=== PATIENT | female | born 1990 | race Caucasian/White ===

== ENCOUNTER → 2017-05-07 17:00 | Outpatient (CLI) | payer OTHER, SELFPAY ==
[2017-05-07 18:26] LABS: Group B Strep DNA By PCR Negative (Negative); Internal Control PASS; Probe Check PASS; Specimen Processing Control PASS
== END ==
PROVIDERS: Visit Provider Obstetrics & Gynecology
DX: Z34.02 Encounter for supervision of normal first pregnancy, second trimester (principal)
CPT/HCPCS: 87081; 87653

== ENCOUNTER → 2017-05-21 18:06 | Outpatient (CLI) | payer OTHER, SELFPAY | PROVIDERS: Visit Provider Obstetrics & Gynecology | DX: Z34.90 Encounter for supervision of normal pregnancy, unspecified, unspecified trimester (principal) | CPT/HCPCS: 87086; 87088 ==

== ENCOUNTER 2017-05-27 13:55 | Outpatient (CLI) | payer OTHER, MEDICAID, SELFPAY ==
[2017-05-27 14:11] VITALS: BMI 30.9
--- NOTE | 2017-05-28 09:57 | OB.TRI.NOTE ---
History of Present Illness Date of Service: 05/27/17 Reason For Visit: R/O LABOR Date of Service: 05/27/17 Final PRISCILLA: 06/01/17 Gestational age: 39 Weeks and 3 Days History of Present Illness: 27 yo presents with contractions no VB LOF Allergies No Known Allergies Allergy (Unverified 05/28/17 06:41) NST - FHR Rate Baby A Baseline: 140 Variability:: Moderate Accelerations:: 15 x 15 Decelerations:: None NST Reactive:: Yes FHR Category:: Category I Uterine Activity:: every 2-5 Impression/Plan no cervical change, false labor. dc home labor precautions
== END 2017-05-27 15:15 | disposition home or self-care (01) ==
LOC: WPOUT 13:58 → WP 13:59
PROVIDERS: Visit Provider Obstetrics & Gynecology
DX: O47.1 False labor at or after 37 completed weeks of gestation (principal); Z3A.39 39 weeks gestation of pregnancy
CPT/HCPCS: 59025; 59050; 99218; G0378

== ENCOUNTER 2017-05-28 04:58 | Inpatient (IN) | payer OTHER, MEDICAID, SELFPAY ==
[2017-05-28] MEDS: Lactated Ringers 1,000 ML 50 ML IV (05:00)
[2017-05-28 05:24] LABS: Hematocrit 41.8 % (37-47); Hemoglobin 14.1 g/dl (12.0-15.0); Mean Corp Hgb Conc 33.7 g/gl (32-36); Mean Corpuscular Hgb 29.7 pg (27.0-32.0); Mean Corpuscular Volume 88.2 fL (81-99); Mean Platelet Vol. 9.7 fl (6.2-12.0); Platelet Count 268 K/mm3 (150-450); RBC Distribution Width SD 44.7 fl (35.1-43.9); Red Blood Count 4.74 M/mm3 (4.2-5.4); White Blood Count 19.2 K/mm3 (4.4-11.0)
[2017-05-28 05:34] LABS: Scan Indicated on CBC? Y/N NO
[2017-05-28] MEDS: Oxytocin 30 units/NS 500 ml 30 UNITS/500 ML IV.SOLN 334 UNITS IV (05:40)
[2017-05-28] MEDS: Methylergonovine 0.2 MG/ML Ampul IM (05:41)
[2017-05-28] MEDS: Oxytocin 30 units/NS 500 ml 30 UNITS/500 ML IV.SOLN 167 UNITS IV (06:10)
[2017-05-28 06:40] VITALS: BMI 30.8
[2017-05-28] MEDS: 0.9% Saline Lock 10 ML Syringe IV (08:38)
[2017-05-28] MEDS: Naproxen 250 MG Tablet PO (08:54)
[2017-05-28 09:03] VITALS: BP 123/76; PULSE 84; RESP 16; TEMP 37.3; O2SAT 94
[2017-05-28 09:57] VITALS: BP 123/76; PULSE 84; RESP 16; TEMP 37.3; O2SAT 94
[2017-05-28 14:00] VITALS: BP 103/59; PULSE 100; RESP 16; TEMP 36.7; O2SAT 96
[2017-05-28] MEDS: Acetaminophen 500 MG Tablet 1000 MG PO (16:09)
[2017-05-28 18:00] VITALS: BP 105/58; PULSE 101; RESP 16; TEMP 36.9; O2SAT 98
[2017-05-28 20:40] VITALS: BP 112/64; PULSE 97; RESP 18; TEMP 36.7; O2SAT 96
[2017-05-28 23:35] VITALS: BP 108/65; PULSE 89; RESP 18; TEMP 36.6; O2SAT 94
[2017-05-29] MEDS: Naproxen 250 MG Tablet PO ×3 (01:33→21:26)
[2017-05-29 03:55] VITALS: BP 112/67; PULSE 86; RESP 18; TEMP 36.7; O2SAT 96
[2017-05-29 09:00] VITALS: BP 110/64; PULSE 93; RESP 16; TEMP 36.5; O2SAT 97
--- NOTE | 2017-05-29 09:32 | PCM.HP.OB ---
- Problem List (1) Active labor at term Status: Acute (2) Supervision of normal Status: Acute Qualifiers: Comment: PRR (needs urine culture) PRISCILLA 06/01/17 girl Addisyn boyfriend Sin D[place] History Date of Admission: 05/28/17 Final PRISCILLA: 06/01/17 Gestational age: 39 Weeks and 4 Days History of this : 27 yo @ 39w4d presents IAL 8 cm dilated and delivered precipitiously within 40 minutes. she had been having contractions t ome on and off for about 24 hours. Pertinent Past Medical History: [facility] Family History Grandmother Diabetes Heart disease Grandfather , colon cancer Colon cancer Social History Smoking Status: Former smoker alcohol intake: never substance use type: does not use what type of physical activity do you participate in: none seatbelt use: always do you feel safe at home: Yes additional social history: single Pregancy History 1 Elective abortions Hx Para Spontaneous abortions Hx # Term Pregnancies Ectopic pregnancies Hx # Pregnancies Multiple births # of living children HPI (OB): Details: SHAYNA TOUSSAINT is a 27 year old who presents for routine OB visit. OB Visit PRISCILLA Calculator Estimated Delivery Date 06/01/17 Based on LMP (certain) 08/25/16 Current WG 38w 3d Number 1 Expected Delivery Route/Plan vaginal Specific Issue/Plans Initial OB labs H03/04/17 12.1 Platelets: Type and Screen: O positive RPR: neg Rubella: immune HepBsAg: neg HIV: neg GC/Chlamydia: neg/neg Urine Culture: HepC: GCT: 128 Rhogam given: Cystic fibrosis carrier screenin-16 week testing Sequential Screen: NIPT screenin-20 week Anatomy Ultrasound: 26-28 week labs Hg: Platelets: GCT: tDAP given: Type and Screen: Rhogam given: 3hrGCT: 36 week labs GBS: Allergies No Known Allergies Allergy (Unverified 05/28/17 06:41) Current Medications Acetaminophen (Tylenol) 1,000 mg PO Q8H PRN PRN PRN Reason: MILD PAIN (1-3/10)/Temp>99.6F Last Admin: 05/28/17 16:09 Dose: 1,000 mg Bisacodyl (Dulcolax) 10 mg RECTAL UD PRN PRN Reason: If no BM Dibucaine (Dibucaine) 1 applic TOPICAL TID PRN PRN; Protocol PRN Reason: Discomfort Hydrocortisone (Hytone) 1 applic TOPICAL TID PRN PRN; Protocol PRN Reason: Discomfort Lactated Ringer's () 1,000 mls @ 0 mls/hr IV .Q0M MOSES PRN Reason: KVO Methylergonovine Maleate (Methergine) 0.2 mg IM X1 PRN PRN Reason: Excess bleeding/uterine atony Last Admin: 05/28/17 05:41 Dose: 0.2 mg Naproxen (Naprosyn) 250 - 500 mg PO Q8H PRN PRN PRN Reason: MILD PAIN (1-3/10) Last Admin: 05/29/17 01:33 Dose: 500 mg Ondansetron HCl (Zofran) 4 mg IV Q4H PRN PRN PRN Reason: Nausea Oxycodone HCl (Oxyir) 5 - 10 mg PO Q4H PRN PRN PRN Reason: MOD-SEVERE PAIN (4-10/10) Senna/Docusate Sodium (Senokot-S, Michelle-Colace) 1 - 2 tablet PO DAILY PRN PRN PRN Reason: Constipation Simethicone (Mylicon) 80 mg PO PCHS PRN PRN Reason: Indigestion/Stomach pain Sodium Chloride () 5 - 15 ml IV UD PRN PRN Reason: SALINE FLUSH Last Admin: 05/28/17 08:38 Dose: 10 ml Smoking Status: Never smoker Alcohol: None Drug Use: none Number of Fetus(es): 1 - 150s moderate variability toco q 2-3 Review of Systems Constitutional: Denies: Chills, Fever, Weight Change HEENT: Denies: Head Aches, Sinus Congestion, Sinus Drainage Cardiovascular: Denies: Chest Pain, Palpitations Respiratory: Denies: Cough, Shortness of breath at rest, Sputum production Gastrointestinal: Reports: Abdominal Pain. Denies: Nausea, Vomiting Genitourinary: Denies: Dysuria Gynecological: Reports: Vaginal bleeding, Vaginal discharge Musculoskeletal: Denies: Joint Pain, Joint Tenderness Skin: Denies: Rash, Wounds Neurological: Denies: Numbness, Tingling, Focal weakness Psychiatric: Denies: Anxiety, Depression, Homicidal Ideations, Suicidal Ideations Hematologic/ Lymphatic: Denies: Easy Bruising, Easy Bleeding Physical Exam Vitals: Vital Signs Temp Pulse Resp BP Pulse Ox 97.7 F L 93 16 110/64 97 05/29/17 09:00 05/29/17 09:00 05/29/17 09:00 05/29/17 09:00 05/29/17 09:00 General: Alert, Oriented x3, No apparent distress Cardiovascular: Regular rate Lungs: Normal air movement Abdomen: Soft, Gravid Estimated gestational size: Appropriate for gestational size Cervix Dilation (cm): 8 Assessment/Plan Active and Suspected Problems (Last Reviewed 05/21/17 @ 12:48 by Gisele Navarro) Active labor at term (Acute) 27 yo @ 39w3d presents IAL preciptious delivery no epidural routine care some mild atony managed with methergine
--- NOTE | 2017-05-29 09:36 | PCM.OB.VAG ---
- Problem List (1) Active labor at term Status: Acute (2) Supervision of normal Status: Acute Qualifiers: Comment: PRR (needs urine culture) PRISCILLA 06/01/17 girl Addisyn boyfriend Sin D[place] Vaginal Delivery Maternal Presentation: Active Labor 27 yo @ 39w3d presents IAL precipitous delivery Amniotic Membrane Rupture Type: Spontaneous at home Amniotic Fluid Description: Clear Final PRISCILLA: 06/01/17 Gestational age: 39 Weeks and 4 Days Date of Procedure: 05/28/17 Pre-Operative Diagnosis: ial Post-Operative Diagnosis: same Surgery/ Procedure Performed: Spontaneous Vaginal Delivery Type of Anesthesia: Local with 1% lidocaine Description of Procedure: spontaneous vaginal deliver uncomplicated 1st degree perineal laceration repaired in the usual fashion after numbed with epinephrine. ebl 400cc. Presentation: SINGH Placental Delivery Description: Spontaneous Placenta Disposition: [facility] Cord Entanglement: None Estimated Blood Loss: 400 A gender: Female Episiotomy Description: None Laceration: Perineal Extension/lac, 1st degree Medications given after delivery: IV Pitocin, IM Methergin Complications: None
[2017-05-29] MEDS: Senna/Docusate Sodium 1 Tablet PO ×2 (10:16→21:27)
[2017-05-29 13:58] VITALS: BP 116/64; PULSE 97; RESP 18; TEMP 36.5; O2SAT 98
[2017-05-29 21:30] VITALS: BP 117/77; PULSE 95; RESP 16; TEMP 35.9; O2SAT 95
[2017-05-30 01:00] VITALS: BP 112/72; PULSE 100; RESP 18; TEMP 36.5
[2017-05-30] MEDS: Naproxen 250 MG Tablet PO (05:48)
--- NOTE | 2017-05-30 07:02 | PCM.PN.OB ---
Patient Problems: Active and Suspected Problems (Last Reviewed 05/21/17 @ 12:48 by Gisele Navarro) Active labor at term (Acute) Subjective: doing well no complaints - Physical Exam General: Alert, Oriented x3 Vital Signs Temp Pulse Resp BP Pulse Ox 97.7 F L 100 18 112/72 95 05/30/17 01:00 05/30/17 01:00 05/30/17 01:00 05/30/17 01:00 05/29/17 21:30 Oxygen Delivery Method Room Air Weight: 209 lb Body Mass Index (BMI) 30.8 Medical Necessity - Tobacco Use Smoking Status: Never smoker Assessment/Plan Active and Suspected Problems (Last Reviewed 05/21/17 @ 12:48 by Gisele Navarro) Active labor at term (Acute) s/p routine care hi home
--- NOTE | 2017-05-30 07:02 | PCM.DCVAG ---
Discharge Diet: No Restrictions Discharge Activity: Return to Normal Activity, May not drive while taking narcotic pain medications., May Shower May resume sexual activity in: 4-6 weeks Call your doctor if your incision/area has: Continuous Slow Oozing, Sudden Increased Bleeding, Increased Pain/ Swelling, Increased Redness, Foul Smelling Discharge Additional Instructions: If you experience any of the following, contact your healthcare provider. Bleeding that soaks a pad every hour for 2 hours Fever 100.4 or higher Unrelieved incision or abdominal pain Swelling, redness, discharge or bleeding from your incision or episiotomy site Your incision begins to separate Problems urinating (including inability to urinate or burning while urinating). Visual changes Severe headache Flu-like symptoms Pain or redness in one of both of your breasts Pain, warmth, tenderness or swelling in your legs, especially the calf area Frequent nausea and vomiting Symptoms of depression or anxiety If you experience any of the following, call 911 or go to the nearest Emergency Room. Chest pain Problems breathing Seizure activity Partial or complete paralysis of a body part, slurred speech, weakness or drooping of the face, or a sudden inability to walk or hold your balance Allergies/Adverse Reactions: Allergies No Known Allergies Allergy (Unverified 05/28/17 06:41) Please Follow Up With: Gudelia Loyd MD - [phone] When: Call to make an appointment with your doctor in 6 weeks. If you had elevated Blood pressure or 4th degree laceration you will need to be seen in 2 weeks. Primary Care Physician: Care Physician,No Primary [Primary Care Provider] -
--- NOTE | 2017-05-30 07:03 | DCINST_ITS ---
Discharge Diet: No Restrictions Discharge Activity: Return to Normal Activity, May not drive while taking narcotic pain medications., May Shower May resume sexual activity in: 4-6 weeks Call your doctor if your incision/area has: Continuous Slow Oozing, Sudden Increased Bleeding, Increased Pain/ Swelling, Increased Redness, Foul Smelling Discharge Additional Instructions: If you experience any of the following, contact your healthcare provider. * Bleeding that soaks a pad every hour for 2 hours * Fever 100.4 or higher * Unrelieved incision or abdominal pain * Swelling, redness, discharge or bleeding from your incision or episiotomy site * Your incision begins to separate * Problems urinating (including inability to urinate or burning while urinating) . * Visual changes * Severe headache * Flu-like symptoms * Pain or redness in one of both of your breasts * Pain, warmth, tenderness or swelling in your legs, especially the calf area * Frequent nausea and vomiting * Symptoms of depression or anxiety If you experience any of the following, call 911 or go to the nearest Emergency Room. * Chest pain * Problems breathing * Seizure activity * Partial or complete paralysis of a body part, slurred speech, weakness or drooping of the face, or a sudden inability to walk or hold your balance Allergies/Adverse Reactions: Allergies No Known Allergies Allergy (Unverified 05/28/17 06:41) Please Follow Up With: Gudelia Loyd MD - [phone] When: Call to make an appointment with your doctor in 6 weeks. If you had elevated Blood pressure or 4th degree laceration you will need to be seen in 2 weeks. Primary Care Physician: Care Physician,No Primary [Primary Care Provider] -
[2017-05-30 08:00] VITALS: BP 115/73; PULSE 97; RESP 16; TEMP 36.8
--- NOTE | 2017-05-30 09:57 | NURSING ---
0840 Patient states she wants to go home and feels comfortable and able to care for herself and her baby. Discharged to home via wheelchair to car with infant in her lap in carseat.
== END 2017-05-30 08:40 | disposition home or self-care (01) | DRG 775 ==
PROVIDERS: Admitting Provider Obstetrics & Gynecology; Visit Provider Obstetrics & Gynecology
DX: O70.0 First degree perineal laceration during delivery (principal); O62.2 Other uterine inertia; Z3A.39 39 weeks gestation of pregnancy; Z37.0 Single live birth
CPT/HCPCS: 59025; 59050; 85027; 86850; 86900; 99218; J7120; A4216; G0378

== ENCOUNTER → 2018-07-27 17:45 | Outpatient (CLI) | payer OTHER, SELFPAY ==
[2018-07-27 15:39] VITALS: BMI 30.7
[2018-07-30 13:14] LABS: HPV Reflexed? NOT INDICATED
== END ==
PROVIDERS: Referring Provider Obstetrics & Gynecology; Visit Provider Obstetrics & Gynecology
DX: Z12.4 Encounter for screening for malignant neoplasm of cervix (principal)
CPT/HCPCS: 87624; 88175; G0145

== ENCOUNTER → 2019-03-17 17:06 | Outpatient (CLI) | payer OTHER, SELFPAY ==
[2019-03-17 14:05] VITALS: BMI 30.7
[2019-03-17 22:04] LABS: Chlamydia Trachomatis by PCR Negative (Negative); Neisserai gonorrhoeae by PCR Negative (Negative); Probe Check PASS; Sample Adequacy Control PASS; Specimen Processing Control PASS
== END ==
PROVIDERS: Referring Provider Obstetrics & Gynecology; Visit Provider Obstetrics & Gynecology
DX: Z34.90 Encounter for supervision of normal pregnancy, unspecified, unspecified trimester (principal)
CPT/HCPCS: 87491; 87591

== ENCOUNTER → 2019-04-14 | Outpatient (CLI) | payer OTHER, SELFPAY ==
[2019-04-14 08:25] VITALS: BMI 30.7
[2019-04-14 10:01] LABS: Absolute Neutrophil Count 5.5 X10^3/uL (2.0-7.7); Basophil# 0.02 X10^3/uL; Basophil% 0.3 % (0-1); Eosinophil# 0.04 X10^3/uL; Eosinophils% 0.6 % (0-5); Hematocrit 41.2 % (37-47); Hemoglobin 13.6 g/dL (12.0-15.0); Mean Corpuscular Volume 90.7 fL (81-99); Mean Platelet Vol. 9.2 fl (6.2-12.0); Monocyte# 0.37 X10^3/uL; Monocyte% 5.1 % (0-10); NRBC Flagged by Analyzer 0 % (0-5); Neutrophil # 5.47 X10^3/uL (2.7-7.7); Neutrophil % 75.6 % (47-70); Platelet Count 234 K/mm3 (150-450); RBC Distribution Width CV 12.6 % (11.6-14.6); RBC Distribution Width SD 41.5 fl (35.1-43.9); Red Blood Count 4.54 M/mm3 (4.2-5.4); White Blood Count 7.2 K/mm3 (4.4-11.0)
[2019-04-14 12:46] LABS: HIV - WCH Non-Reactive (Nonreactive); Hepatitis B Surface Antigen Non-Reactive (Nonreactive); Rubella IgG 129.7 IU/mL
[2019-04-14 17:07] LABS: Amphetamine Urine VISTA NEGATIVE (<1000 ng/mL); Barbiturate Urine VISTA NEGATIVE (< 200 ng/mL); Benzodiazepine Urine VISTA NEGATIVE (< 200 ng/mL); Cocaine Urine VISTA NEGATIVE (< 300 ng/mL); Ecstacy Urine VISTA NEGATIVE (< 500 ng/mL); Methadone Urine VISTA NEGATIVE (< 300 ng/mL); PCP Urine VISTA NEGATIVE (< 25 ng/mL); THC Urine VISTA NEGATIVE (< 50 ng/mL); Vista UDS pH Range 6
[2019-04-21 03:49] LABS: Rapid Plasmin Reagin (RPR) NONREACTIVE (NONREACTIVE)
== END | disposition home or self-care (01) ==
LOC: LAB 09:01
PROVIDERS: Nurse Practitioner Women's Health; Referring Provider Obstetrics & Gynecology; Visit Provider Obstetrics & Gynecology
DX: Z34.90 Encounter for supervision of normal pregnancy, unspecified, unspecified trimester (principal)
CPT/HCPCS: 36415; 80307; 85025; 86592; 86703; 86762; 86850; 86900; 86901; 87340

== ENCOUNTER → 2019-06-03 | Outpatient (CLI) | payer OTHER, SELFPAY ==
[2019-04-14 08:25] VITALS: BMI 30.7
[2019-05-13 09:05] VITALS: BMI 30.7
--- NOTE | 2019-06-03 12:20 | US_ITS ---
STUDY: SECOND AND THIRD TRIMESTER OBSTETRICAL ULTRASOUND REASON FOR EXAM: Female, 29 years old anatomy LMP: January 14, 2019 TECHNIQUE: Transabdominal TECHNICAL QUALITY: Adequate. PRIOR ULTRASOUND: None. FINDINGS: There is a single intrauterine fetus. The fetus is in a transverse lie with the head on the maternal right side. There is demonstrated cardiac activity with a heart rate of 150 bpm. There is a normal amniotic fluid volume. The largest amniotic fluid pocket measures 7 cm x 3.7 cm. The amniotic fluid index (LARA) is within normal limits. The placenta is anterior in location and is not low lying. There is a 2.4 cm x 1.7 cm x 0.8 cm placental doyle. There are Grade 0 placental changes. The cervix measures 4 cm in length. The bilateral adnexal regions are normal. BIOMETRY: BPD: 4.23 cm: 18 weeks, 5 days HC: 16.7 cm: 19 weeks, 2 days AC: 15.1 cm: 20 weeks, 2 days FL: 3.2 Lj: 19 weeks, 6 days CI: 72% FL/BPD: 75% FL/HC: FL/AC: 21% HC/AC: 1.11 age by current US: 19 weeks, 2 days. PRISCILLA by current US: October 26, 2019. Estimated weight: 326 grams, +/- 48 grams, 37 %. Age by LMP: 20 weeks, 0 days. PRISCILLA by LMP: October 21, 2019. ANATOMY: Gender: Male Cranium: Normal lateral ventricles. Normal choroid plexus. Normal cerebellum. Normal cisterna magna. Normal face, nose and lips. Chest: Normal 4-chamber heart. Abdomen/Pelvis: Normal diaphragm. Normal stomach. Normal abdominal wall. Normal cord insertion. Normal 3 vessel cord. Normal kidneys. Normal bladder. Spine: Normal cervical spine. Normal thoracic spine. Normal lumbar spine. Normal sacrum. Extremities: Normal bilateral upper extremities. Normal bilateral lower extremities. US/OB Anatomy Scan IMPRESSION: Single live intrauterine gestation with a mean gestational age of 19 weeks and 2 days. Electronically Signed: Bam Dominguez, at 14:23 EDT , Service support ,
== END | disposition home or self-care (01) ==
LOC: OPUS 12:19
PROVIDERS: Referring Provider Obstetrics & Gynecology; Visit Provider Obstetrics & Gynecology
DX: Z34.81 Encounter for supervision of other normal pregnancy, first trimester (principal)
CPT/HCPCS: 76805

== ENCOUNTER → 2019-08-04 10:03 | Outpatient (CLI) | payer OTHER, SELFPAY ==
[2019-08-04 09:44] VITALS: BMI 30.7
[2019-08-04 11:16] LABS: Absolute Lymphocyte Count 1.44 X10^3/uL (0.83-4.51); Basophil# 0.03 X10^3/uL; Basophil% 0.3 % (0-1); Eosinophil# 0.07 X10^3/uL; Eosinophils% 0.8 % (0-5); Hematocrit 40.8 % (37-47); Hemoglobin 13.3 g/dL (12.0-15.0); Lymphocyte # 1.44 X10^3/ul (4.0); Lymphocyte % 15.6 % (19-41); Mean Corp Hgb Conc 32.6 g/dL (32-36); Mean Corpuscular Hgb 30.2 pg (27.0-32.0); Mean Corpuscular Volume 92.5 fL (81-99); Mean Platelet Vol. 9.1 fl (6.2-12.0); Monocyte# 0.61 X10^3/uL; Monocyte% 6.6 % (0-10); NRBC Flagged by Analyzer 0 % (0-5); Neutrophil # 7.04 X10^3/uL (2.7-7.7); Neutrophil % 76.1 % (47-70); Platelet Count 254 K/mm3 (150-450); RBC Distribution Width CV 13.5 % (11.6-14.6); Red Blood Count 4.41 M/mm3 (4.2-5.4); White Blood Count 9.3 K/mm3 (4.4-11.0)
[2019-08-04 12:41] LABS: Glucose Challenge Gest 1H 50g 154 mg/dL (70-140)
== END ==
PROVIDERS: Referring Provider Nurse Practitioner Women's Health; Visit Provider Nurse Practitioner Women's Health
DX: Z34.90 Encounter for supervision of normal pregnancy, unspecified, unspecified trimester (principal)
CPT/HCPCS: 36415; 82950; 85025

== ENCOUNTER → 2019-08-10 | Outpatient (CLI) | payer OTHER, SELFPAY ==
[2019-08-04 09:44] VITALS: BMI 30.7
[2019-08-10 10:36] LABS: Glucose GTT-Gestation. Fasting 94 mg/dL (<105)
[2019-08-10 11:28] LABS: Glucose GTT-Gestational 1 Hr 124 mg/dL (<190)
[2019-08-10 13:07] LABS: Glucose GTT-Gestational 2 Hr 113 mg/dL (<165)
[2019-08-10 14:00] LABS: Glucose GTT-Gestational 3 Hr 108 L (<145)
== END | disposition home or self-care (01) ==
LOC: LAB 09:50
PROVIDERS: Referring Provider Nurse Practitioner Women's Health; Visit Provider Nurse Practitioner Women's Health
DX: O99.810 Abnormal glucose complicating pregnancy (principal); Z3A.00 Weeks of gestation of pregnancy not specified
CPT/HCPCS: 36415; 82951; 82952

== ENCOUNTER → 2019-09-23 | Outpatient (CLI) | payer OTHER, SELFPAY ==
[2019-09-23 08:42] VITALS: BMI 30.7
== END | disposition home or self-care (01) ==
LOC: LABSPEC 12:49
PROVIDERS: Referring Provider Obstetrics & Gynecology; Visit Provider Obstetrics & Gynecology
DX: Z34.81 Encounter for supervision of other normal pregnancy, first trimester (principal)
CPT/HCPCS: 87081; 87186

== ENCOUNTER → 2019-10-21 09:11 | Outpatient (CLI) | payer OTHER, SELFPAY ==
[2019-10-21 08:03] VITALS: BMI 31.6
--- NOTE | 2019-10-21 09:17 | US_ITS ---
STUDY: SECOND AND THIRD TRIMESTER OBSTETRICAL ULTRASOUND REASON FOR EXAM: Female, 29 years old GROWTH LMP: 01/14/2019. TECHNIQUE: Transabdominal TECHNICAL QUALITY: Adequate. PRIOR ULTRASOUND: Comparison is made with prior examination of 06/03/2019. FINDINGS: There is a single intrauterine fetus. The fetus is in a cephalic presentation. There is demonstrated cardiac activity with a heart rate of 152 bpm. There is a normal amniotic fluid volume. The largest amniotic fluid pocket measures 5.94 cm. The amniotic fluid index (LARA) is 9.01 cm. The placenta is anterior in location and is not low lying. There are Grade 3 placental changes. The cervix was not measured due to the head positioning. Tthe bilateral adnexal regions are normal. BIOMETRY: BPD: 9.17 cm: 37 weeks, 2 days HC: 33.43 cm: 38 weeks, 2 days AC: 34.58 cm: 39 weeks, 4 days FL: 7.76 cm: 39 weeks, 5 days CI: 78% FL/BPD: 85% FL/HC: FL/AC: 22% HC/AC: 0.94 age by current US: 38 weeks, 5 days. PRISCILLA by current US: 10/30/2019. Estimated weight: 3678 grams, +/- 537 grams, 55 %. age by prior US: 39 weeks, 2 days. PRISCILLA by prior US: 10/26/2019. Age by LMP: 40 weeks, 0 days. PRISCILLA by LMP: 10/21/2019. US/OB Limited With Biometrics IMPRESSION: Single live intrauterine gestation with mean gestational age of 39 weeks and 2 days. The measurements obtained today fall within normal expected range. Electronically Signed: Bam Dominguez, at 11:19 EDT , Service support ,
== END ==
PROVIDERS: Referring Provider Obstetrics & Gynecology; Visit Provider Obstetrics & Gynecology
DX: Z34.90 Encounter for supervision of normal pregnancy, unspecified, unspecified trimester (principal); Z3A.39 39 weeks gestation of pregnancy
CPT/HCPCS: 76816

== ENCOUNTER 2019-10-23 18:50 | Inpatient (IN) | payer OTHER, SELFPAY ==
[2019-10-21 08:03] VITALS: BMI 31.6
[2019-10-23] VITALS (10 sets, daily range): BP systolic 121–133; BP diastolic 76–89; PULSE 91–103; TEMP 36.4–36.7; O2SAT 82–98; BMI 32.6
--- NOTE | 2019-10-23 19:04 | HP.PCM_ITS ---
- Problem List (1) Elective induction of labor planned Status: Acute (2) GBS (group B Streptococcus carrier), +RV culture, currently Status: Acute Comment: plan PCN in labor (3) Abnormal glucose tolerance in Status: Acute Comment: normal 3 hr GTT (4) Contraception management Status: Acute Qualifiers: Comment: plans PPTL (5) Status: Acute Qualifiers: Comment: declines carrier and NIPT screening, and ntd screening. nl anatomy. (6) Supervision of normal Status: Acute Qualifiers: Comment: PRR PRISCILLA 10/21/19 boy Elpidio PC Addsusann boyfriend Sin History Date of Admission: 05/28/17 Final PRISCILLA: 10/21/19 Gestational age: 40 Weeks and 2 Days History of this : This is a 29 year-old, at 40w2d weeks gestational age presents for elective IOL postdates. She has a favorable cervix and is wanting to have a PPTL which will be likely be completed tomorrow at noon. Allergies No Known Allergies Allergy (Verified 10/21/19 08:03) Home Medications: Home Medications docosahexaenoic acid 200 mg capsule mg PO 03/17/19 Smoking Status: Never smoker Alcohol: None Number of Fetus(es): 1 NST - FHR Rate Baby A Baseline: 130 Variability:: Moderate Accelerations:: 15 x 15 Decelerations:: None NST Reactive:: Yes, Appropriate for gestational age FHR Category:: Category I History Past Pregnancies: Past Pregnancies previous term Labs: Social History Alleged father Sin Hx Smoking No Smoking Status Never smoker Expected Infant Delivery Method: Spontaneous Vaginal Review of Systems Constitutional: Denies: Fever, Malaise Eyes: Denies: Blurred vision, Vision Change HEENT: Denies: Head Aches, Visual Changes Cardiovascular: Denies: Chest Pain, Palpitations Respiratory: Denies: Cough, Shortness of Breath, Wheezing Gastrointestinal: Denies: Abdominal Pain, Diarrhea, Nausea, Vomiting Genitourinary: Denies: Dysuria, Hematuria Musculoskeletal: Denies: Joint Pain, Muscle pain Skin: Denies: Lesions, Rash Neurological: Denies: Blurred vision, Focal weakness, Headaches Psychiatric: Denies: Anxiety, Depression Endocrine: Denies: Heat/ Cold Intolerance Hematologic/ Lymphatic: Denies: Easy Bruising, Easy Bleeding Physical Exam General: Alert, Cooperative, No apparent distress HEENT: Atraumatic, Normocephalic. Negative for: Thyromegaly, Lymphadenopathy Cardiovascular: Regular rate Lungs: Normal air movement Abdomen: Soft, Non Tender, Gravid Neurological: Deep Tendon Reflexes 2+/4 and Symmetrical, Neuro grossly intact. Negative for: Clonus TANGIBLE PERSONAL PROPERTY APPRAISER: Normal external genitalia. Negative for: Vulvar lesions Estimated gestational size: Appropriate for gestational size Presentation: Cephalic Cervix Dilation (cm): 3 Station: -2 Effacement (%): 60 Assessment/Plan All Active Problems (Last Reviewed 10/21/19 @ 08:03 by Gisele Navarro) Elective induction of labor planned (Acute) GBS (group B Streptococcus carrier), +RV culture, currently (Acute) Abnormal glucose tolerance in (Acute) Contraception management (Acute) (Acute) Supervision of normal (Acute) Active labor at term (Resolved) This is a 29 year-old, at 40w3d weeks gestational age presetns for IOL elective postdates. Patient presents IOL, plan management for with [pitocin/AROM]. Pain management: [plans epidural]. GBS [negative]. Management of any complications: [none] I have reviewed the [facility] and made any clinically relevant updates. plan PPTL tomorrow at noon if able
[2019-10-23] MEDS: Lactated Ringers 1,000 ML 50 ML IV (19:45)
[2019-10-23 20:08] LABS: Absolute Lymphocyte Count 1.93 X10^3/uL (0.83-4.51); Absolute Neutrophil Count 7.2 X10^3/uL (2.0-7.7); Basophil# 0.03 X10^3/uL; Basophil% 0.3 % (0-1); Eosinophil# 0.11 X10^3/uL; Eosinophils% 1.1 % (0-5); Hematocrit 39.2 % (37-47); Lymphocyte # 1.93 X10^3/ul (4.0); Lymphocyte % 18.7 % (19-41); Mean Corp Hgb Conc 33.2 g/dL (32-36); Mean Corpuscular Volume 90.5 fL (81-99); Mean Platelet Vol. 9.6 fl (6.2-12.0); Monocyte# 0.99 X10^3/uL; Monocyte% 9.6 % (0-10); NRBC Flagged by Analyzer 0 % (0-5); Neutrophil # 7.17 X10^3/uL (2.7-7.7); Neutrophil % 69.6 % (47-70); Platelet Count 243 K/mm3 (150-450); RBC Distribution Width CV 13.4 % (11.6-14.6); RBC Distribution Width SD 44.6 fl (35.1-43.9); Red Blood Count 4.33 M/mm3 (4.2-5.4); White Blood Count 10.3 K/mm3 (4.4-11.0)
[2019-10-23] MEDS: Oxytocin 30 units/NS 500 ml 30 UNITS/500 ML IV.SOLN IV (21:55)
[2019-10-24] VITALS (36 sets, daily range): BP systolic 105–134; BP diastolic 57–79; PULSE 78–103; RESP 16; TEMP 36.1–36.8; O2SAT 94–97
[2019-10-24] MEDS: Lactated Ringers 1,000 ML 200 ML IV (03:36)
[2019-10-24] MEDS: Lactated Ringers 500 ML 999 ML IV (04:45)
--- NOTE | 2019-10-24 05:16 | OP.PCM_ITS ---
Problem List (1) Elective induction of labor planned Status: Acute (2) GBS (group B Streptococcus carrier), +RV culture, currently Status: Acute Comment: plan PCN in labor (3) Abnormal glucose tolerance in Status: Acute Comment: normal 3 hr GTT (4) Contraception management Status: Acute Qualifiers: Comment: plans PPTL (5) Status: Acute Qualifiers: Comment: declines carrier and NIPT screening, and ntd screening. nl anatomy. (6) Supervision of normal Status: Acute Qualifiers: Comment: PRR PRISCILLA 10/21/19 boy Elpidio PC Addysn boyfriend Sin Vaginal Delivery Maternal Presentation: Elective Induction iol 40w3d desires PPTL postdates Method of Induction: Pitocin Medical Reason for Induction: Post term Amniotic Membrane Rupture Type: Artificial Amniotic Fluid Description: Clear Final PRISCILLA: 10/21/19 Gestational age: 40 Weeks and 3 Days Date of Procedure: 10/24/19 Pre-Operative Diagnosis: iol elective postdate 40w3d Post-Operative Diagnosis: same Surgery/ Procedure Performed: Spontaneous Vaginal Delivery Type of Anesthesia: None Description of Procedure: Patient began pushing and delivered the head in the SINGH presentation. The head was delivered atraumatically. The anterior and posterior shoulders delivered without complication followed by the rest of the infant and the infant was placed on the maternal abdomen. Delayed cord clamping was employed for approximately 60 seconds. Cord was clamped and cut and gentle traction was applied to the cord and the placenta delivered spontaneously immediately following it was noted to be intact with three-vessel cord. The perineum and vagina were inspected and noted to have no laceration. EBL was 100 cc. Patient and tolerated delivery well. Placenta Disposition: [facility] Cord Vessel Description: 3 Vessels Cord Entanglement: None Estimated Blood Loss: 100 Infant A gender: Male Episiotomy Description: None Laceration: None Medications given after delivery: IV Pitocin Complications: None Multi Select Codes - Urinary/Genital Urinary/Genital CPT Codes: 42364 Vaginal Delivery [facility]
[2019-10-24] MEDS: Oxytocin 30 units/NS 500 ml 30 UNITS/500 ML IV.SOLN 334 UNITS IV (05:38)
[2019-10-24] MEDS: Methylergonovine 0.2 MG/ML Ampul IM (06:22)
--- NOTE | 2019-10-24 08:20 | NURSING ---
Pads weighed from recovery; total EBL from pads 625 ml, urine noted along with blood in first pad that weighed 410 ml. Small clot noted the size of dime in 2nd pad. Pt's rubra amount decreased after voiding 300 ml urine in toilet with this RN's assistance. Vitals remain stable.
[2019-10-24] MEDS: Naproxen 250 MG Tablet 500 MG PO ×2 (08:40→19:49)
[2019-10-24] MEDS: Lactated Ringers 1,000 ML 150 ML IV ×2 (08:44→13:30)
--- NOTE | 2019-10-24 13:38 | PCM.OPRPT ---
Problem List (1) Elective induction of labor planned Status: Acute (2) GBS (group B Streptococcus carrier), +RV culture, currently Status: Acute Comment: plan PCN in labor (3) Abnormal glucose tolerance in Status: Acute Comment: normal 3 hr GTT (4) Contraception management Status: Acute Qualifiers: Comment: plans PPTL (5) Status: Acute Qualifiers: Comment: declines carrier and NIPT screening, and ntd screening. nl anatomy. (6) Supervision of normal Status: Acute Qualifiers: Comment: PRR PRISCILLA 10/21/19 boy Elpidio PC Addysn boyfriend Sin Report of Operation Date of Procedure: 10/24/19 Pre-Operative Diagnosis: sterilization Post-Operative Diagnosis: same Surgery/Procedure Performed:: tad vang Description of Surgical Findings:: nl tubes ovaries Type of Anesthesia:: General Special Medications: none Specimen's removed: none Drains: none Estimated Blood Loss (mL): none Fluids Replaced: crystalloid Description of Procedure: Patient was taken to the operating room and general anesthesia induced. Patient was placed in the dorsal supine position was prepped and draped in normal sterile fashion. Mehta catheter was used to drain the bladder. Infra umbilical incision was made with a scalpel after injecting with marcaine and carried through the underlying layer of the fascia with a scalpel fascial incision was extended bilaterally with Flores scissors and bowel packed away and the right fallopian tube identified confirmed to be fallopian tube by following it out to the fimbria and a Filshie clip was applied in the mid interstitial portion of the fallopian tube noting to completely transect the tube. This was repeated on the left side where the tube was identified and followed out to the fimbria and confirmed to be fallopian tube and then the mid interstitial portion of the tube was completely transected with the Filshie clip. Excellent hemostasis was noted. Fascia was closed with 0 Vicryl and skin closed with 3-0 Monocryl. No complications. Patient was taken recovery in stable condition. Grafts/Implants Used: none - Complications none - Admit VTE Documentation VTE Present on Admission: No VTE Mechan Device Prophylaxis: SCD's Multi Select Codes - Urinary/Genital Urinary/Genital CPT Codes: 72602 PPTL
[2019-10-24] MEDS: 0.9% Saline Lock 10 ML Syringe IV (15:23)
[2019-10-24] MEDS: Acetaminophen 500 MG Tablet 1000 MG PO ×2 (15:30→23:46)
--- NOTE | 2019-10-25 00:08 | DCINST_ITS ---
<Gudelia Loyd - Last Filed: 10/25/19 00:08> Discharge Diet: No Restrictions Discharge Activity: Return to Normal Activity, May not drive while taking narcotic pain medications., May Shower May resume sexual activity in: 4-6 weeks Call your doctor if your incision/area has: Continuous Slow Oozing, Sudden Increased Bleeding, Increased Pain/ Swelling, Increased Redness, Foul Smelling Discharge Additional Instructions: If you experience any of the following, contact your healthcare provider. * Bleeding that soaks a pad every hour for 2 hours * Fever 100.4 or higher * Unrelieved incision or abdominal pain * Swelling, redness, discharge or bleeding from your incision or episiotomy site * Your incision begins to separate * Problems urinating (including inability to urinate or burning while urinating). * Visual changes * Severe headache * Flu-like symptoms * Pain or redness in one of both of your breasts * Pain, warmth, tenderness or swelling in your legs, especially the calf area * Frequent nausea and vomiting * Symptoms of depression or anxiety If you experience any of the following, call 911 or go to the nearest Emergency Room. * Chest pain * Problems breathing * Seizure activity * Partial or complete paralysis of a body part, slurred speech, weakness or drooping of the face, or a sudden inability to walk or hold your balance Allergies/Adverse Reactions: Allergies No Known Allergies Allergy (Verified 10/23/19 20:12) Medications to take at Discharge Vits [Prenatabs FA ] 1 tab PO DAILY 10/23/19 Naproxen [Naprosyn] 250 - 500 mg PO Q8H PRN PRN #30 tab 10/25/19 The following prescriptions were given: Naproxen [Naprosyn] 250 - 500 mg PO Q8H PRN PRN #30 tab PRN Reason: MILD PAIN Transmission Status: Received by [id number] Please Follow Up With: Gudelia Loyd MD - [phone] When: Call to make an appointment with your doctor in 6 weeks. If you had elevated Blood pressure or 4th degree laceration you will need to be seen in 2 weeks. Primary Care Physician: Care Physician,No Primary [Primary Care Provider] - Test Results: Test results from this visit will be discussed in further detail at your follow- up appointment, if applicable. <MarioAn - Last Filed: 10/25/19 07:57> Additional Instructions: If you experience any of the following, contact your healthcare provider. * Bleeding that soaks a pad every hour for 2 hours * Fever 100.4 or higher * Unrelieved incision or abdominal pain * Swelling, redness, discharge or bleeding from your incision or episiotomy site * Your incision begins to separate * Problems urinating (including inability to urinate or burning while urinating). * Visual changes * Severe headache * Flu-like symptoms * Pain or redness in one of both of your breasts * Pain, warmth, tenderness or swelling in your legs, especially the calf area * Frequent nausea and vomiting * Symptoms of depression or anxiety If you experience any of the following, call 911 or go to the nearest Emergency Room. * Chest pain * Problems breathing * Seizure activity * Partial or complete paralysis of a body part, slurred speech, weakness or drooping of the face, or a sudden inability to walk or hold your balance Test Results: Test results from this visit will be discussed in further detail at your follow- up appointment, if applicable.
--- NOTE | 2019-10-25 00:08 | PCM.DCVAG ---
<Gudelia Loyd - Last Filed: 10/25/19 00:08> Discharge Diet: No Restrictions Discharge Activity: Return to Normal Activity, May not drive while taking narcotic pain medications., May Shower May resume sexual activity in: 4-6 weeks Call your doctor if your incision/area has: Continuous Slow Oozing, Sudden Increased Bleeding, Increased Pain/ Swelling, Increased Redness, Foul Smelling Discharge Additional Instructions: If you experience any of the following, contact your healthcare provider. Bleeding that soaks a pad every hour for 2 hours Fever 100.4 or higher Unrelieved incision or abdominal pain Swelling, redness, discharge or bleeding from your incision or episiotomy site Your incision begins to separate Problems urinating (including inability to urinate or burning while urinating). Visual changes Severe headache Flu-like symptoms Pain or redness in one of both of your breasts Pain, warmth, tenderness or swelling in your legs, especially the calf area Frequent nausea and vomiting Symptoms of depression or anxiety If you experience any of the following, call 911 or go to the nearest Emergency Room. Chest pain Problems breathing Seizure activity Partial or complete paralysis of a body part, slurred speech, weakness or drooping of the face, or a sudden inability to walk or hold your balance Allergies/Adverse Reactions: Allergies No Known Allergies Allergy (Verified 10/23/19 20:12) Medications to take at Discharge Vits [Prenatabs FA ] 1 tab PO DAILY 10/23/19 Naproxen [Naprosyn] 250 - 500 mg PO Q8H PRN PRN #30 tab 10/25/19 The following prescriptions were given: Naproxen [Naprosyn] 250 - 500 mg PO Q8H PRN PRN #30 tab PRN Reason: MILD PAIN Transmission Status[id number] Please Follow Up With: Gudelia Loyd MD - [phone] When: Call to make an appointment with your doctor in 6 weeks. If you had elevated Blood pressure or 4th degree laceration you will need to be seen in 2 weeks. Primary Care Physician: Care Physician,No Primary [Primary Care Provider] - Test Results: Test results from this visit will be discussed in further detail at your follow-up appointment, if applicable. <An Martin - Last Filed: 10/25/19 07:57> Additional Instructions: If you experience any of the following, contact your healthcare provider. Bleeding that soaks a pad every hour for 2 hours Fever 100.4 or higher Unrelieved incision or abdominal pain Swelling, redness, discharge or bleeding from your incision or episiotomy site Your incision begins to separate Problems urinating (including inability to urinate or burning while urinating). Visual changes Severe headache Flu-like symptoms Pain or redness in one of both of your breasts Pain, warmth, tenderness or swelling in your legs, especially the calf area Frequent nausea and vomiting Symptoms of depression or anxiety If you experience any of the following, call 911 or go to the nearest Emergency Room. Chest pain Problems breathing Seizure activity Partial or complete paralysis of a body part, slurred speech, weakness or drooping of the face, or a sudden inability to walk or hold your balance Test Results: Test results from this visit will be discussed in further detail at your follow-up appointment, if applicable.
[2019-10-25 04:01] VITALS: BP 112/59; PULSE 80
[2019-10-25 04:02] VITALS: BP 112/59; PULSE 80; RESP 14; TEMP 36.5
[2019-10-25] MEDS: Naproxen 250 MG Tablet 500 MG PO (05:57)
--- NOTE | 2019-10-25 07:55 | PCM.PN.OB ---
Patient Problems: Active and Suspected Problems (Last Reviewed 10/21/19 @ 08:03 by Gisele Navarro) Elective induction of labor planned (Acute) Subjective: Doing well, no complaints.Pain controlled/had pp BPS yesterday. Denies CP, SOB, N,V. Ambulating well, tolerating po. Lochia moderate, going well. - Physical Exam Vitals/I&O's: Vital Signs Temp Pulse Resp BP Pulse Ox 97.7 F L 80 14 112/59 L 96 10/25/19 04:02 10/25/19 04:02 10/25/19 04:02 10/25/19 04:02 10/24/19 15:11 Oxygen Flow Rate (L/min) 4 Oxygen Delivery Method Room Air Weight: 214 lb 15.211 oz Body Mass Index (BMI) 32.6 Intake and Output for Last 24 Hours 10/23/19 10/24/19 10/25/19 23:59 23:59 23:59 Intake Total 168.73 / 168.73 4031.78 / 4031.78 Output Total 1700 / 1700 Balance 168.73 / 168.73 2331.78 / 2331.78 General: Oriented x3 Abdomen: Soft, Non-Distended, - - FF below U. Incision dry and intact Current Medications Acetaminophen (Tylenol) 1,000 mg PO Q8H PRN PRN PRN Reason: Pain Score 1-310 Last Admin: 10/24/19 23:46 Dose: 1,000 mg Documented by: Bisacodyl (Dulcolax) 10 mg RECTAL UD PRN PRN Reason: If no BM Dibucaine (Dibucaine) 1 applic TOPICAL TID PRN PRN; Protocol PRN Reason: Discomfort Hydrocortisone (Hytone) 1 applic TOPICAL TID PRN PRN; Protocol PRN Reason: Discomfort Methylergonovine Maleate (Methergine) 0.2 mg IM X1 PRN PRN Reason: Excess bleeding/uterine atony Last Admin: 10/24/19 06:22 Dose: 0.2 mg Documented by: Naproxen (Naprosyn) 500 mg PO Q8H PRN PRN PRN Reason: Pain Score 1-3/10 Last Admin: 10/25/19 05:57 Dose: 500 mg Documented by: Ondansetron HCl (Zofran) 4 mg IV Q4H PRN PRN PRN Reason: Nausea Oxycodone HCl (Oxyir) 5 - 10 mg PO Q4H PRN PRN PRN Reason: Pain Score 4-10/10 Multivit/Folic Acid/Iron (Prenatabs Fa) 1 tablet PO DAILY MOSES Last Admin: 10/24/19 09:36 Dose: Not Given Documented by: Senna/Docusate Sodium (Senokot-S, Michelle-Colace) 1 - 2 tablet PO DAILY PRN PRN PRN Reason: Constipation Simethicone (Mylicon) 80 mg PO PCHS PRN PRN Reason: Indigestion/Stomach pain Sodium Chloride () 5 - 15 ml IV UD PRN PRN Reason: SALINE FLUSH Last Admin: 10/24/19 15:23 Dose: 10 ml Documented by: Medical Necessity - Tobacco Use Smoking Status: Former smoker Assessment/Plan All Active Problems (Last Reviewed 10/21/19 @ 08:03 by Gisele Navarro) Elective induction of labor planned (Acute) GBS (group B Streptococcus carrier), +RV culture, currently (Acute) Abnormal glucose tolerance in (Acute) Contraception management (Acute) (Acute) Supervision of normal (Acute) Active labor at term (Resolved) s/p PPD # 1 POD #1 1. routine post delivery care 2. breast feeding- support given 3. rh positive 4. rubella immune 5. home today
[2019-10-25 08:30] VITALS: BP 108/66; PULSE 76; RESP 16; TEMP 36.6
[2019-10-25 08:39] VITALS: BP 108/66; PULSE 96
[2019-10-25] MEDS: Acetaminophen 500 MG Tablet 1000 MG PO (11:33)
== END 2019-10-25 11:45 | disposition home or self-care (01) | DRG 798 ==
PROVIDERS: Admitting Provider Obstetrics & Gynecology; Referring Provider Obstetrics & Gynecology; Visit Provider Obstetrics & Gynecology
PROC: 0UL70ZZ Occlusion of Bilateral Fallopian Tubes, Open Approach (ICD-10-PCS; principal; 2019-10-24 12:20)
DX: O48.0 Post-term pregnancy (principal); Z37.0 Single live birth; Z3A.40 40 weeks gestation of pregnancy; O99.824 Streptococcus B carrier state complicating childbirth; Z30.2 Encounter for sterilization
CPT/HCPCS: 59025; 59050; 85025; 86850; 86900; 86901; 99218; J7120; A4216; G0378; J2405

== ENCOUNTER 2022-11-09 16:28 | Emergency (ER) | payer MEDICAID, SELFPAY ==
[2022-11-09 16:29] VITALS: BP 118/68; PULSE 101; RESP 18; TEMP 36.8; O2SAT 100; BMI 25.3
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
[2022-11-09] MEDS: HYDROcodone Bitartrate/Apap 5/325 Tablet PO (18:43)
== END 2022-11-09 18:52 | disposition home or self-care (01) ==
PROVIDERS: Emergency Provider Emergency Medicine; Visit Provider Emergency Medicine
DX: S43.101A Unspecified dislocation of right acromioclavicular joint, initial encounter (principal); Z87.891 Personal history of nicotine dependence; V28.49XA Other motorcycle driver injured in noncollision transport accident in traffic accident, initial encounter
CPT/HCPCS: 73000; 73030; 99283

== ENCOUNTER → 2023-05-28 | Outpatient (CLI) | payer MEDICAID, SELFPAY ==
--- OUTSIDE RECORDS SUMMARY | 2023-05-28 22:32 | XMS RPT_ITS | CCD ---
Author Name Unknown Address [address] [place] [address] Organization [facility] Care Team Providers Care Shaper Set Up Operator Name Role Phone [place] An PARHAM Unavailable Gudelia Loyd MD Unavailable [phone] ANGEL BORRERO Unavailable Unavailable TAWANDA BROWNING Unavailable Unavailable ANGEL BORRERO Unavailable Unavailable TAWANDA BROWNING Unavailable Unavailable EWELINA ORTEGA Unavailable Unavailable GUDELIA LOYD Unavailable Unavailbobby [place] NO PRIMARY CAREMD Unavailable Unavailable Gudelia Loyd MD Unavailable [phone] Medications Completed/Discontinued Medications Medication Drug Class(es) Dates Sig (Normalized) Sig (Original) VIT-FE FUMARATE-FA (6 sources) Start: 11-10-2016 VITAMINS 28-0.8 MG TABS VIT-FE FUMARATE-FA [id number] Gisele Navarro Problems Problem Classification Problem Date Documented Da te Episodic/Chronic Normal and/or delivery (20 sources) Gestation period, 15 weeks; Translations: [Normal ] Onset: 10-30-2016 12-08-2016 Episodic Unclassified (15 sources) 11 weeks gestation of ; Translations: [11 weeks gestation of ] Onset: 11-10-2016 11-10-2016 Results Test Name Value Interpretation Reference Range Facil ity Vital Signs Date Time Vital Sign Value Performing Clinician Ze allen 02-06-2017 13:19-0500 BMI (Body Mass Index) 30.77 kg/m2 Gudelia Loyd MD [facility] 02-06-2017 13:19-0500 BP Diastolic 80 mm[Hg] Gudelia Loyd MD [facility] 02-06-2017 13:19-0500 BP Systolic 128 mm[Hg] Gudelia Loyd MD [facility] 02-06-2017 13:19-0500 Weight 91.81 kg Gudelia Loyd MD [facility] 01-08-2017 14:02-0400 BMI (Body Mass Index) 29.83 kg/m2 Gudelia Loyd MD [facility] 01-08-2017 14:02-0400 Body Temperature 98.4 [degF] Gudelia Loyd MD [facility] 01-08-2017 14:02-0400 BP Diastolic 76 mm[Hg] Gudelia Loyd MD [facility] 01-08-2017 14:02-0400 BP Systolic 114 mm[Hg] Gudelia Loyd MD [facility] 01-08-2017 14:02-0400 Pulse (Heart Rate) 100 /min Gudelia Loyd MD [facility] 01-08-2017 14:02-0400 Respiratory Rate 16 /min Gudelia Loyd MD [facility] 01-08-2017 14:02-0400 Weight 89 kg Gudelia Loyd MD [facility] 12-08-2016 09:53-0400 BMI (Body Mass Index) 29.43 kg/m2 An Martin NP [facility] 12-08-2016 09:53-0400 Body Temperature 97.6 [degF] An [facility] 12-08-2016 09:53-0400 BP Diastolic 78 mm[Hg] An Mario [employer] LIFT OPER[employer] [facility] 12-08-2016 09:53-0400 BP Systolic 119 mm[Hg] An Mario [employer] LIFT OPER[employer] [facility] 12-08-2016 09:53-0400 Pulse (Heart Rate) 115 /min An [place] [employer] [facility] [facility] 12-08-2016 09:53-0400 Respiratory Rate 16 /min An [place] AIR LIFT OPERATOR [facility] 12-08-2016 09:53-0400 Weight 87.82 kg An Martin AIR LIFT OPERATOR [facility] 11-10-2016 10:09-0400 BMI (Body Mass Index) 29.59 kg/m2 Gudelia Loyd MD [facility] 11-10-2016 10:0 Body Temperature 96.49 [degF] Gudelia Loyd MD [facility] 11-10-2016 10:0400 Body Temperature 96.5 [degF] Gudelia Loyd MD [facility] 11-10-2016 10:0400 BP Diastolic 75 mm[Hg] Gudelia Loyd MD [facility] 11-10-2016 10:0400 BP Systolic 114 mm[Hg] Gudelia Loyd MD [facility] 11-10-2016 10:0400 Height 172.72 cm Gudelia Loyd MD [facility] 11-10-2016 10:0400 Pulse (Heart Rate) 107 /min Gudelia Loyd MD [facility] 11-10-2016 10:0400 Respiratory Rate 16 /min Gudelia Loyd MD [facility] 11-10-2016 10:0400 Weight 88.27 kg Gudelia Loyd MD [facility] Encounters Encounter Date Encounter Type Care Provider Facility Start: 11-24-2016 Ambulatory [facility] Start: 10-30-2016 End: 11-04-2016 Ambulatory [facility] Facility:B Start: 10-30-2016 End: 10-31-2016 [facility] Facility:B Procedures Date Procedure Procedure Detail Performing Clinician Start: 02-06-2017 End: 02-06-2017 Routine OB Visit (Global) Gudelia vazquez MD Work Phone: Start: 02-06-2017 End: 03-07-2017 *CBC with Differential Gudelia mcallister MD Work Phone: Start: 02-06-2017 End: 03-31-2017 GTT (glucose after 1hr PO glucose) Gudelia Loyd MD Work Phone: Start: 02-06-2017 End: 02-06-2017 Routine OB Visit (Global) Gudelia vazquez MD Work Phone: Start: 01-08-2017 End: 01-08-2017 Routine OB Visit (Global) Gudelia vazquez MD Work Phone: Start: 01-08-2017 End: 01-08-2017 Routine OB Visit (Global) Gudelia vazquez MD Work Phone: Start: 12-08-2016 End: 12-08-2016 Routine OB Visit (Global) An [place] gs AIR LIFT OPERATOR Work Phone: Start: 12-08-2016 End: 12-08-2016 Routine OB Visit (Global) An [place] gs AIR LIFT OPERATOR Work Phone: Start: 11-10-2016 End: 11-10-2016 Routine OB Visit (Global) Gudelia vazquez MD Work Phone: Start: 11-10-2016 End: 11-10-2016 Routine OB Visit (Global) Gudelia vazquez MD Work Phone: Plan of Treatment Date Care Activity Detail Author Start: 03-04-2017 End: 03-04-2017 Appointment Appointment [facility] Start: 02-06-2017 End: 02-06-2017 *CBC with Differential *CBC with Differential [facility] Start: 02-06-2017 End: 02-06-2017 GTT (glucose after 1hr PO glucose) *Glucose, Post Glucose Dose [facility] Start: 02-06-2017 End: 02-06-2017 Appointment Appointment [facility] Start: 02-06-2017 End: 03-07-2017 *CBC with Differential *CBC with Differential [facility] Start: 02-06-2017 End: 03-31-2017 GTT (glucose after 1hr PO glucose) *Glucose, Post Glucose Dose [facility] Start: 01-08-2017 End: 01-08-2017 Appointment Appointment [facility] Start: 12-08-2016 End: 12-08-2016 Us preg uterus after 1st trimest 1/ gestation US OB, >14 weeks [facility] Start: 12-08-2016 End: 12-08-2016 Appointment Appointment [facility] Start: 12-08-2016 End: 12-08-2016 Ob us >/= 14 wks, sngl fetus US OB, >14 weeks [facility] Start: 11-10-2016 End: 11-10-[address] [facility] Payers Date Payer Category Payer Unknown [id number] Summary Purpose Family History No Family History Records FoundNo Family History Records Found Advance Directives No Advanced Directives Records FoundNo Advanced Directives Records Found Additional Source Comments INFORMATION SOURCE (unrecogn ized section and content) DATE CREATED AUTHOR AUTHOR'S ORGANIZ ATION 09/08/2017 [facility] FOR RECORDS PERTAINING TO PATIENTS WHO ARE OR HAVE BEEN ENROLLED IN A CHEMICAL DEPENDENCY/SUBSTANCEABUSE PROGRAM, SOME INFORMATION MAY BE OMITTED. This clinical summary was aggregated from multiple sources. Caution should be exercised in using it in the provision of clinical care. This summary normalizes information from multiple sources, and as a consequence, information in this document may materially change the coding, format and clinical context of patient data. In addition, data may be omitted in some cases. CLINICAL DECISIONS SHOULD BE BASED ON THE PRIMARY CLINICAL RECORDS. [employer] provides no warranty or guarantee of the accuracy or completeness of information in this document.
[2023-06-04 05:07] LABS: HPV APTIMA, High Risk Positive (Negative); HPV Genotype 16, Aptima Positive (Negative); HPV Genotype 18,45 Aptima Negative (Negative)
== END | disposition home or self-care (01) ==
LOC: LABSPEC 16:11
PROVIDERS: Referring Provider Nurse Practitioner Women's Health; Visit Provider Nurse Practitioner Women's Health
DX: Z12.4 Encounter for screening for malignant neoplasm of cervix (principal)
CPT/HCPCS: 87624; 88175; G0145